=== PATIENT | male | born 1980 | race Caucasian/White ===

== ENCOUNTER 2018-10-16 01:30 | Emergency (ER) | payer SELFPAY ==
[~2018-10-16] VITALS: Ht 162.6 cm; Wt 100.0 kg
[2018-10-16] MEDS ORDERED: OMEP20 PO (01:45)
[2018-10-16 03:12] VITALS: BP 147/88
== END 2018-10-16 03:13 | disposition home or self-care (01) ==
LOC: EMS 01:32
DX: S01.312A Laceration without foreign body of left ear, initial encounter (principal); S10.93XA Contusion of unspecified part of neck, initial encounter; S40.012A Contusion of left shoulder, initial encounter; S20.222A Contusion of left back wall of thorax, initial encounter; F17.210 Nicotine dependence, cigarettes, uncomplicated; Y04.0XXA Assault by unarmed brawl or fight, initial encounter; Y93.89 Activity, other specified; Y92.89 Other specified places as the place of occurrence of the external cause; Y99.8 Other external cause status